=== PATIENT | female | born 1945 | race Caucasian/White ===

== ENCOUNTER 2017-04-29 20:37 | Emergency (ER) | payer MEDICARE, OTHER ==
[~2017-04-29 20:37] MED LIST: AMANTADINE HCL100 M1 PO; ART5 PO; IBUPROFEN400 MG PO; SIMVASTATIN20 M1 PO; SIN25100 PO; SYM100 PO; TEN50 PO; TRIHEXYPHENIDYL5 MG PO; ZESTRIL5 MG PO; ZOC20 PO; [UNRECOGNIZED DRUG - OTHER] PO
[2017-04-30 03:29] VITALS: BP 147/86
== END 2017-04-30 03:29 | disposition home or self-care (01) ==
LOC: ED 20:37
DX: S09.90XA Unspecified injury of head, initial encounter (principal); G20 Parkinson's disease; E78.00 Pure hypercholesterolemia, unspecified; M81.0 Age-related osteoporosis without current pathological fracture; M19.90 Unspecified osteoarthritis, unspecified site; I10 Essential (primary) hypertension; Z88.0 Allergy status to penicillin; W19.XXXA Unspecified fall, initial encounter; Y93.9 Activity, unspecified; Y92.89 Other specified places as the place of occurrence of the external cause; Y99.8 Other external cause status

== ENCOUNTER 2017-10-03 11:32 | Emergency (ER) | payer MEDICARE, OTHER ==
[~2017-10-03] VITALS: Ht 154.9 cm; Wt 54.4 kg
[2017-10-03 11:35] VITALS: Ht 154.9 cm; Wt 54.4 kg
[2017-10-03 14:30] VITALS: BP 108/73
== END 2017-10-03 14:31 | disposition home or self-care (01) ==
LOC: ED 11:32
DX: S30.0XXA Contusion of lower back and pelvis, initial encounter (principal); I10 Essential (primary) hypertension; E78.00 Pure hypercholesterolemia, unspecified; M81.0 Age-related osteoporosis without current pathological fracture; G20 Parkinson's disease; Z88.0 Allergy status to penicillin; Z86.73 Personal history of transient ischemic attack (TIA), and cerebral infarction without residual deficits; W18.39XA Other fall on same level, initial encounter; Y93.89 Activity, other specified; Y92.89 Other specified places as the place of occurrence of the external cause; Y99.8 Other external cause status

== ENCOUNTER 2019-01-25 11:20 | Emergency (ER) | payer MEDICARE, OTHER ==
[~2019-01-25] VITALS: Ht 147.3 cm; Wt 49.0 kg
[2019-01-25 11:28] VITALS: Ht 147.3 cm; Wt 49.0 kg
[2019-01-25 12:51] LABS: CALCIUM 8.3 mg/dL (8.5-10.1); CARBON DIOXIDE 30.1 mmol/L (21-32); CHLORIDE SERUM 104 mmol/L (98-107); CREATININE SERUM 0.8 mg/dL (0.6-1.0); GLUCOSE SERUM 91 mg/dL (74-106); POTASSIUM SERUM 3.9 mmol/L (3.5-5.1); SODIUM SERUM 140 mmol/L (136-145)
[2019-01-25 12:52] LABS: BASOPHIL % 0.6 % (0-2); PLATELET COUNT 294 x10^3mcL (130-400); RED CELL DISTRIBUTION WIDTH 13.6 % (11.5-14.5)
[2019-01-25 12:56] LABS: ALBUMIN 3.5 g/dL (3.4-5.0); ALKALINE PHOSPHATASE 56 U/L (46-116); ALT/SGPT 7 U/L (14-59); AST/SGOT 16 U/L (15-37); BILIRUBIN TOTAL 0.5 mg/dL (0.20-1.00); TOTAL PROTEIN, SERUM 6.7 g/dL (6.4-8.2)
[2019-01-25 13:55] LABS: microscopic required? YES; urine erythrocyte NEGATIVE (NEGATIVE)
[2019-01-25 16:16] VITALS: BP 144/39
== END 2019-01-25 16:16 | disposition home or self-care (01) ==
LOC: ED 11:20
PROVIDERS: Student in an Organized Health Care Education/Training Program
DX: N39.0 Urinary tract infection, site not specified (principal); R11.2 Nausea with vomiting, unspecified; I10 Essential (primary) hypertension; G20 Parkinson's disease; E78.00 Pure hypercholesterolemia, unspecified; M81.0 Age-related osteoporosis without current pathological fracture; Z86.73 Personal history of transient ischemic attack (TIA), and cerebral infarction without residual deficits; Z88.0 Allergy status to penicillin
CPT/HCPCS: J2405; J7030; Q0092; Q9967